=== PATIENT | male | born 1930 | race Caucasian/White ===

== ENCOUNTER → 2016-10-22 | Outpatient (CLI) | payer MEDICARE, OTHER ==
--- NOTE | 2016-10-22 10:14 | RAD ---
EXAM DESCRIPTION: XR SHOULDER 2 OR MORE VIEWS CLINICAL HISTORY: PAIN IN LEFT SHOULDER COMPARISON: None. IMPRESSION: Two views of the left shoulder show no evidence of acute fracture, focal bone destruction, or joint dislocation. Bony hypertrophy of the greater tuberosities seen with circumferential osteophyte of the glenoid consistent with glenohumeral joint osteoarthritic changes. Remote appearing healed fracture of the left mid clavicle is seen. 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 Electronically signed by: David Drake MD 10/22/2016 10:12
== END ==
LOC: RAD 08:49
PROVIDERS: ATTEND Orthopaedic Surgery
DX: M19.012 Primary osteoarthritis, left shoulder (principal)

== ENCOUNTER → 2016-11-11 | Outpatient (CLI) | payer MEDICARE, OTHER | END | disposition home or self-care (01) | LOC: RESP 11:16 | PROVIDERS: ATTEND Orthopaedic Surgery | DX: Z01.818 Encounter for other preprocedural examination (principal) ==

== ENCOUNTER 2016-11-26 06:03 | Day surgery (SDC) | payer MEDICARE, OTHER ==
--- NOTE | 2016-11-25 11:29 | HP ---
CHIEF COMPLAINT: Hand numbness. HISTORY OF PRESENT ILLNESS: Mr. Prescott is an 86-year-old male with a history of numbness in the right hand. He has had no trauma related to this, denies any radiation of pain, and it is along the distribution of the median nerve. He has had an EMG which showed that he had evidence of carpal tunnel syndrome. It has been going on for quite sometime and has been getting progressively worse. He has failed to get better with any other interventions. Because of that, he has requested operative intervention. After discussing the risks, benefits and alternatives to that, the patient has given informed consent. PAST SURGICAL HISTORY: 1. Shoulder surgery. 2. Cervical spine surgery. MEDICATIONS: 1. Carvedilol. 2. CoQ10. 3. Furosemide. 4. Losartan. 5. Meloxicam. 6. Gabapentin. ALLERGIES: NO KNOWN DRUG ALLERGIES. CODE STATUS: Full code. IMMUNIZATIONS: Up to date. SOCIAL HISTORY: The patient does not drink, smoke or use any illicit drugs. FAMILY HISTORY: None pertinent to today's complaint. REVIEW OF SYSTEMS: Negative except as indicated in the History of Present Illness. PHYSICAL EXAMINATION: VITAL SIGNS: Blood pressure 160/94. Pulse 57. Height 6'. Weight 200. MENTAL STATUS: The patient is awake, alert, and is able to give a good history and participate in the physical. The patient is oriented to person, place and time. SKIN: Normal tone and turgor. HEENT: Normocephalic, atraumatic. Pupils equal, round and reactive. Mucosal membranes are moist. NECK: Normal range of motion. No thyromegaly, no lymphadenopathy. CHEST: Normal respiratory excursion. CARDIAC: Regular rate and rhythm. No murmurs, rubs or gallops. MUSCULOSKELETAL: The right hand shows some minor thenar atrophy relative to the contralateral side. He has positive Phalen's, but negative Tinel's. 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 He has had previous trauma remotely to the extremity, so he is limited with regards to pronation and supination. He does have full abduction as well. ASSESSMENT: 1. Carpal tunnel syndrome. PLAN: The plan at this point is for carpal tunnel release. We have discussed the risks, benefits, and alternatives to that and the patient has given informed consent. #[id number] [facility]
[~2016-11-26 06:03] MED LIST: LACTATED RINGERS 1,000 ML ONE; SODIUM CHL 0.9% 100ML MINI-BAG 100 ML IVPB ONE; ceFAZolin SODIUM 1 GM VIAL ONE
[2016-11-26] MEDS ORDERED: BUPIVACAINE 0.25% INJ 30 ML VIAL INJ ONE (06:51)
[2016-11-26] MEDS ORDERED: LIDOCAINE 1% 50 ML VIAL INJ ONE (06:51)
[2016-11-26] MEDS ORDERED: ceFAZolin SODIUM 1 GM VIAL ONE (06:51)
[2016-11-26] MEDS ORDERED: VANCOMYCIN HCL INJ 1,000 MG VIAL IVPB ONE (06:51)
[2016-11-26] MEDS ORDERED: fentaNYL CITRATE INJ 50 MCG/ML AMP ONE (06:56)
[2016-11-26 08:44] VITALS: BP 190/82; TEMP 97.2; O2SAT 99
[2016-11-26] MEDS ORDERED: LIDOCAINE 1% 10 ML VIAL INJ ONE (12:00)
[2016-11-26] MEDS ORDERED: PROPOFOL 200 MG/20 ML VIAL IV ONE (12:00)
--- NOTE | 2016-11-27 11:12 | OP ---
DATE OF PROCEDURE: 11/26/16 PREOPERATIVE DIAGNOSIS: 1. Left carpal tunnel syndrome. POSTOPERATIVE DIAGNOSIS: 1. Left carpal tunnel syndrome. PROCEDURE: 1. Carpal tunnel release. 0 SURGEON: Antwan Perales MD. CHEMIST: Vahid Slade CST, SA-C. ANESTHESIA: Local with sedation. COMPLICATIONS: None. FINDINGS: Thickening of the transverse carpal ligament with slight discoloration of the median nerve, consistent with chronic compression. 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 Mr. Prescott has symptoms at rest and, as such, I discussed with him the possibility of either prolonged or incomplete recovery. He requested operative intervention. After discussing the risks, benefits and alternatives to that, the patient has given informed consent for carpal tunnel release. PROCEDURE: The patient was brought to the Operating Room and placed in the supine position. Sedation was administered and local anesthetic was injected into the operative area under sterile conditions. After the injection of anesthetic, the arm was sterilely prepped and draped. A longitudinal incision was made directly overlying the transverse carpal ligament and blunt dissection was carried down to the ligament. The transverse carpal ligament was sharply transected along its length and a Hawi elevator was used to ensure complete release of the ligament. Once release had been confirmed, the wound was thoroughly irrigated and the wound was closed with Nylon suture. A sterile dressing was placed and the patient was taken to the Day Surgery Unit. POSTOPERATIVE INSTRUCTIONS: The patient has been encouraged to do range of motion of the digits and will followup with us in approximately two days. #[id number] [facility]
== END 2016-11-26 08:45 | disposition home or self-care (01) ==
LOC: AMB 06:03
PROVIDERS: ATTEND Orthopaedic Surgery
DX: G56.02 Carpal tunnel syndrome, left upper limb (principal); Z79.899 Other long term (current) drug therapy
CPT/HCPCS: 64721; J0690; J3010; J3370; J3490; J7050; J7120